=== PATIENT | male | born 1955 | race Caucasian/White ===

== ENCOUNTER 2018-03-19 07:05 | Day surgery (SDC) | payer MEDICARE, BC ==
[~2018-03-19 07:05] MED LIST: Sodium Chloride 0.9% 1,000 ML IV SCH
[2018-03-19] MEDS ORDERED: Sodium Chloride 0.9% 1,000 ML IV SCH (07:30)
[2018-03-19] MEDS ORDERED: Midazolam 1 MG/ML 2 ML SDV ONE (07:32)
[2018-03-19] MEDS ORDERED: Propofol 200 MG/20 ML SDV ONE ×2 (07:32→08:05)
[2018-03-19] MEDS ORDERED: fentaNYL 100 MCG/2 ML SDV ONE (07:32)
[2018-03-19 10:47] VITALS: BP 133/84
--- NOTE | 2018-03-22 07:39 | OR ---
DATE OF PROCEDURE: 03/19/2018 PROCEDURE: Colonoscopy. FINDINGS: Transverse colon polyp, approximately 5 mm, completely removed using cold biopsy forceps. COMPLICATIONS: None. SOFTWARE SALES CONSULTANT: None. PREOPERATIVE DIAGNOSIS: History of colon polyps/family history of colorectal cancer. POSTOPERATIVE DIAGNOSIS: History of colon polyps/family history of colorectal cancer. RISKS: Risks, benefits, alternatives, and limitations including, but not limited to infection, bleeding, and perforation were explained to the patient, who wished to proceed. PROCEDURE IN DETAIL: The patient was placed in the left lateral decubitus position. Digital rectal exam was performed without abnormality. The scope was introduced, advanced atraumatically to the ileocecal valve. The scope was brought back to the ascending, transverse, descending colon, and retroflexed. The patient's prep was poor and approximately 90% luminal surface could be seen, and this was due to retained liquid stool which suction irrigation techniques were used to maximize visualization. Within the transverse colon, the aforementioned polyps were identified and completely removed. No abnormalities on retroflex. The patient tolerated the procedure well. Jona Miranda MD /[id number]
== END 2018-03-19 10:35 | disposition home or self-care (01) ==
LOC: JP.SDS 07:05
PROVIDERS: ATTEND Surgery
DX: Z12.11 Encounter for screening for malignant neoplasm of colon (principal); K63.5 Polyp of colon; I10 Essential (primary) hypertension; E11.9 Type 2 diabetes mellitus without complications; Z86.010 Personal history of colon polyps; Z80.0 Family history of malignant neoplasm of digestive organs
CPT/HCPCS: 45380; J2250; J2704; J3010; J7030; 88305

== ENCOUNTER 2022-12-19 09:01 | Emergency (ER) | payer MEDICARE, BC ==
[2022-12-19 09:17] VITALS: BP 132/72; PULSE 94
== END 2022-12-19 09:55 | disposition home or self-care (01) ==
LOC: JP.ED 09:01
DX: S30.861A Insect bite (nonvenomous) of abdominal wall, initial encounter (principal); R55 Syncope and collapse; A69.20 Lyme disease, unspecified; I10 Essential (primary) hypertension; E78.00 Pure hypercholesterolemia, unspecified; E11.9 Type 2 diabetes mellitus without complications; Z79.82 Long term (current) use of aspirin; Z79.899 Other long term (current) drug therapy; W57.XXXA Bitten or stung by nonvenomous insect and other nonvenomous arthropods, initial encounter
CPT/HCPCS: 99283; 99284